=== PATIENT | female | born 1945 | race Caucasian/White ===

== ENCOUNTER 2020-03-30 09:47 | Emergency (ER) | payer MEDICARE ==
[~2020-03-30] VITALS: Ht 167.6 cm; Wt 74.1 kg
[2020-03-30] MEDS ORDERED: KETOROLAC 30 MG/1 ML ONE (10:53)
[2020-03-30] MEDS ORDERED: KETOROLAC 30 MG/1 ML IM ONE (11:00)
--- NOTE | 2020-03-30 11:00 | NUR ---
pt medicated for 9-10/10 pain. ice to right shoulder applied
--- NOTE | 2020-03-30 11:34 | NUR ---
PT WITH PAIN DECREASED TO 7/10 "ITS STILL SORE TO THE TOUCH" NO IV TO DC. REVIEWED DC INSTRUCTIONS WITH PT, UNDERSTANDING VERBALIZED. PT LEFT AMB, GAIT STEADY
[2020-03-30 11:35] VITALS: BP 139/76
== END 2020-03-30 11:37 | disposition home or self-care (01) ==
LOC: ED 10:14
DX: M19.011 Primary osteoarthritis, right shoulder (principal); K08.89 Other specified disorders of teeth and supporting structures; M79.89 Other specified soft tissue disorders
CPT/HCPCS: 73030; 96372; 99283; J1885

== ENCOUNTER 2021-02-06 14:38 | Outpatient (CLI) | payer MEDICARE | END 2021-02-06 23:59 | disposition home or self-care (01) | LOC: CFH 14:38 | PROVIDERS: ATTEND Physician Assistant Surgical | DX: M62.561 Muscle wasting and atrophy, not elsewhere classified, right lower leg (principal); M19.071 Primary osteoarthritis, right ankle and foot ==